=== PATIENT | female | born 1985 | race Caucasian/White ===

== ENCOUNTER 2017-01-01 17:42 | Emergency (ER) | payer OTHER ==
[~2017-01-01] VITALS: Ht 170.2 cm; Wt 147.8 kg
[~2017-01-01 17:42] MED LIST: ALBUAER2 INH; ARIP1TAB8 PO; ATEN25TA PO; BCPILLS PO; CETI10TA10 PO; CHOL1TAB4 PO; CHRO1CAP PO; COLE625T PO; CRAN1TAB3 PO; CYAN50TA2 PO; DEXT20CA PO; DIAZ10GE PO; LAMO200T32 PO; LAVAZA PO; LEVO150T9 PO; LRS10 PO; METF-382 PO; NXM/40 PO; OXYC7.5T78 PO; PRAZ1CAP10 PO; SNG10 PO; SUMA100T16 PO; SYMIN160 INH; TOPI100T45 PO; VITACAP37 PO; [UNRECOGNIZED DRUG - CODE] IM; [UNRECOGNIZED DRUG - CODE] PO; [UNRECOGNIZED DRUG - CODE] PO; [UNRECOGNIZED DRUG - OTHER]; [UNRECOGNIZED DRUG - OTHER] PO
[2017-01-01 17:45] VITALS: TEMP 36.5; Ht 170.2 cm; Wt 147.8 kg
[2017-01-01 18:20] LABS: BASO % 0.4 %; BASO ABS # 0.03 K/uL (0-0.2); COMPLETE YES; EOS % 2.6 %; HEMATOCRIT 41.1 % (37-47); IG% 0.1 %; LYMPH % 36.8 %; MEAN CELL VOLUME 87.3 fL (80-100); MEAN CORPUSCULAR HEMOGLOBIN 30.4 pg (25-34); MEAN CORPUSCULAR HGB CONC 34.8 g/dl (32-36); MEAN PLATELET VOLUME 11.3 fL (7.4-10.4); NEUT % 52.1 %; PLATELET COUNT 181 K/uL (130-400); RED BLOOD COUNT 4.71 M/uL (4.2-5.4); WHITE BLOOD COUNT 8.42 K/uL (4.8-10.8)
--- NOTE | 2017-01-01 18:36 | DIAGNOSTIC IMAGING REPORT ---
CHEST ONE VIEW PORTABLE CLINICAL HISTORY: Evaluate Fever/Sepsis dyspnea COMPARISON STUDY: No previous studies for comparison. FINDINGS: The bones soft tissues and hemidiaphragms are normal. The cardiomediastinal silhouette is normal. The lungs are clear. The pulmonary vasculature is normal. IMPRESSION: Negative chest. Electronically signed by: Han Shaw M.D. 01/01/2017 6:34 PM Dictated Date/Time: 01/01/2017 6:34 PM
[2017-01-01 18:42] LABS: BLOOD UREA NITROGEN 8 mg/dl (7-18); BUN/CREATININE RATIO 13.1 (10-20); CALCIUM 9.1 mg/dl (8.5-10.1); CARBON DIOXIDE 25 mmol/L (21-32); CHLORIDE 107 mmol/L (98-107); CREATININE 0.65 mg/dl (0.60-1.20); GLUCOSE 79 mg/dl (70-99); SODIUM 140 mmol/L (136-145)
[2017-01-01] MEDS ORDERED: NORGTAB36 PO (18:42)
[2017-01-01] MEDS ORDERED: TIZA2CAP PO ×2 (18:44→18:46)
[2017-01-01] MEDS ORDERED: [UNRECOGNIZED DRUG - CODE] INJ (18:54)
[2017-01-01] MEDS ORDERED: MULT-506 PO (18:58)
[2017-01-01] MEDS ORDERED: B-CO1CAP17 PO (19:02)
[2017-01-01] MEDS ORDERED: CLB/200 PO (19:03)
[2017-01-01] MEDS ORDERED: PRVHFAIN INH (19:06)
--- NOTE | 2017-01-01 19:14 | EMERGENCY ROOM VISIT NOTE ---
History Report prepared by Wesley: Bobby Alvares Under the Supervision of: Dr. Maynor Bush D.O. First contact with patient: 18:02 Chief Complaint: VOMITING Stated Complaint: VOMITING BLOOD DIZZY Nursing Triage Summary: HEMATEMESIS, DARK STOOL. RECENT FALLS. LEFT HIP PAIN. LEFT SHOULDER/BACK PAIN WITH DEEP BREATHS. History of Present Illness The patient is a 31 year old female who presents to the Emergency Room with complaints of intermittent vomiting that began this morning. She rates her pain a 10/10 in severity. After eating breakfast, she went to the bathroom secondary to feeling like she was going to throw up. She then had an episode of hematemesis. The patient was diagnosed with gastroparesis by a doctor in [place]. She received an endoscopy in May 2016 that showed this. She is currently dizzy, fatigued, and short of breath. She states that with deep breaths, she experiences back pain. Her hematemesis has become more frequent. She has a past medical history of hypothyroidism, bipolar disorder, and a fatty liver. She is currently taking a hypothyroid medication, an acid reflux medication, and a prn nausea medication. Source of History: patient Onset: this morning Position: other (GI) Symptom Intensity: mild Quality: other (Emesis) Timing: intermittent Modifying Factors (Worsening): breathing Associated Symptoms: + SOB, + back pain, + fatigue Note: She is currently dizzy and had one episode of hematemesis this morning. Review of Systems See HPI for pertinent positives & negatives. A total of 10 systems reviewed and were otherwise negative. Past Medical & Surgical Surgical Problems: (1) History of cholecystectomy (2) History of orthopedic surgery (3) Previous back surgery Hypothyroid Bipolar disorder Insulin resistance PCOS Fatty Liver Family History Patient reports no known family medical history. Social History Smoking Status: Never Smoker Smokeless Tobacco Use: Yes Alcohol Use: none Marital Status: single Housing Status: lives with family Occupation Status: unemployed Current/Historical Medications Scheduled Aripiprazole Lauroxil (Aristada), 3.2 ML INJ [id number] Atenolol (Tenormin), 25 MG PO QAM Budesonide/Formoterol Fumarate (Symbicort 160/4.5 Inhaler ), 2 PUFFS INH BID Celecoxib (CeleBREX), 200 MG PO QAM Cetirizine Hcl (Zyrtec), 10 MG PO DAILY Cholecalciferol (Vitamin D-3), 5,000 INTER.UNIT PO BID Chromium-Cinnamon (Cinnamon Plus Chromium), 1,000 MG PO BID Cranberry (Vaccinium Macrocarp (Cranberry), 900 MG PO QAM Dextromethorphan Hbr-Quinidine (Nuedexta), 1 CAP PO QAM Dextromethorphan Hbr-Quinidine (Nuedexta), 2 CAP PO QPM Diazepam (Anticonvulsant) (Diazepam), 10 MG PO BID Esomeprazole Magnesium (Nexium), 40 MG PO AMPM Lamotrigine (Lamictal Xr), 200 MG PO QAM Levothyroxine Sodium (Levothyroxine Sodium), 150 MCG PO DAILY Metformin Ext Rel (Glucophage Ext Rel), 1,000 MG PO QPM Montelukast Sod (Montelukast Sodium), 10 MG PO QPM Multivitamin (Multivitamin), 2 TAB PO QAM Norgestimate-Ethinyl Estradiol (Ortho Tri-Cyclen), 1 TAB PO DAILY Miyzoyecvxijkmgogo-Enh-Idw (Vayacog), 1 CAP PO QAM Sumatriptan Succinate (Imitrex), 1 TAB PO UD Tizanidine (Zanaflex), 4 MG PO QAM Tizanidine (Zanaflex), 2 MG PO QPM Vitamin B Cmplx/Vitc/Folic Ac (Nephrocaps), 1 CAP PO QAM Vitamin E (E-400), 400 UNIT PO BID Scheduled PRN Albuterol (Ventolin Hfa), 2 PUFFS INH Q4H PRN for SOB/Wheezing Diclofenac Potassium (Migraine ([place]), 1 PKT PO UD PRN for Migraine Allergies Coded Allergies: Risperidone (Verified Allergy, Unknown, ., 03/04/15) Uncoded Allergies: FANPT (Allergy, Unknown, ., 03/04/15) Physical Exam Vital Signs Date Time Temp Pulse Resp B/P Pulse Ox O2 Delivery O2 Flow Rate FiO2 01/01/17 19:53 120/72 01/01/17 19:42 60 23 98 01/01/17 19:12 65 21 97 01/01/17 18:42 64 19 96 01/01/17 18:12 60 20 96 01/01/17 18:06 63 01/01/17 18:03 122/77 01/01/17 17:45 36.5 64 18 133/86 96 Room Air Physical Exam CONSTITUTIONAL/VITAL SIGNS: Reviewed / noted above. GENERAL: Non-toxic in appearance. Morbid obesity. No acute distress. INTEGUMENTARY: Warm, dry, and [place]. HEAD: Normocephalic. EYES: without scleral icterus or trauma. ENT/OROPHARYNX: clear and moist. LYMPHADENOPATHY/NECK: Is supple without lymphadenopathy or meningismus. RESPIRATORY: Lungs clear and equal. CARDIOVASCULAR: Regular rate and rhythm. GI/ABDOMEN: Soft and nontender. No organomegaly or pulsatile mass. No rebound or guarding. Normal bowel sounds. EXTREMITIES: Warm and well perfused. BACK: No CVA tenderness. NEUROLOGICAL: Intact without focal deficits. PSYCHIATRIC: normal affect. MUSCULOSKELETAL: Normally developed with good muscle tone. Medical Decision & Procedures ER Provider Diagnostic Interpretation: X ray results and stated below per my interpretation and radiology interpretation. CHEST ONE VIEW PORTABLE CLINICAL HISTORY: Evaluate Fever/Sepsis dyspnea COMPARISON STUDY: No previous studies for comparison. FINDINGS: The bones soft tissues and hemidiaphragms are normal. The cardiomediastinal silhouette is normal. The lungs are clear. The pulmonary vasculature is normal. IMPRESSION: Negative chest. Electronically signed by: Han Shaw M.D. 01/01/2017 6:34 PM Dictated Date/Time: 01/01/2017 6:34 PM Laboratory Results 01/01/17 18:10 Red Blood Count 4.71, Mean Corpuscular Volume 87.3, Mean Corpuscular Hemoglobin 30.4, Mean Corpuscular Hemoglobin Concent 34.8, Mean Platelet Volume 11.3, Neutrophils (%) (Auto) 52.1, Lymphocytes (%) (Auto) 36.8, Monocytes (%) (Auto) 8.0, Eosinophils (%) (Auto) 2.6, Basophils (%) (Auto) 0.4, Neutrophils # (Auto) 4.39, Lymphocytes # (Auto) 3.10, Monocytes # (Auto) 0.67, Eosinophils # (Auto) 0.22, Basophils # (Auto) 0.03 01/01/17 18:10 Test 01/01/17 18:10 White Blood Count 8.42 K/uL (4.8-10.8) Red Blood Count 4.71 M/uL (4.2-5.4) Hemoglobin 14.3 g/dL (12.0-16.0) Hematocrit 41.1 % (37-47) Mean Corpuscular Volume 87.3 fL (80-100) Mean Corpuscular Hemoglobin 30.4 pg (25-34) Mean Corpuscular Hemoglobin Concent 34.8 g/dl (32-36) Platelet Count 181 K/uL (130-400) Mean Platelet Volume 11.3 fL (7.4-10.4) Neutrophils (%) (Auto) 52.1 % Lymphocytes (%) (Auto) 36.8 % Monocytes (%) (Auto) 8.0 % Eosinophils (%) (Auto) 2.6 % Basophils (%) (Auto) 0.4 % Neutrophils # (Auto) 4.39 K/uL (1.4-6.5) Lymphocytes # (Auto) 3.10 K/uL (1.2-3.4) Monocytes # (Auto) 0.67 K/uL (0.11-0.59) Eosinophils # (Auto) 0.22 K/uL (0-0.5) Basophils # (Auto) 0.03 K/uL (0-0.2) RDW Standard Deviation 40.0 fL (36.4-46.3) RDW Coefficient of Variation 12.5 % (11.5-14.5) Immature Granulocyte % (Auto) 0.1 % Immature Granulocyte # (Auto) 0.01 K/uL (0.00-0.02) Anion Gap 8.0 mmol/L (3-11) Est Creatinine Clear Calc Drug Dose 188.5 ml/min Estimated GFR () 136.2 Estimated GFR (Non- 117.5 BUN/Creatinine Ratio 13.1 (10-20) Calcium Level 9.1 mg/dl (8.5-10.1) Total Creatine Kinase 44 U/L (26-192) Creatine Kinase MB < 0.5 ng/ml (0.5-3.6) Creatine Kinase MB Ratio (0-3.0) Lipase 130 U/L (73-393) Laboratory results as stated above per my review. ED Course 180: Previous medical records were reviewed. The patient was evaluated in room C11B. A complete history and physical examination was performed. 1916: On reevaluation, the patient is resting. I discussed the results and findings with the patient. She verbalized agreement of the treatment plan. She was discharged home. Medical Decision Differential diagnosis: Etiologies such as metabolic, infection, hypo/hyperglycemia, electrolyte abnormalities, cardiac sources, intracerebral event, toxicologic, neurologic, as well as others were entertained. This is a 31-year-old female who presents to the emergency department with a chief complaint of some hematemesis. The patient has a history of this. She has had endoscopy in [place] for the same May 2016. The mother reports the patient has gastroparesis and vomits occasionally. It does at times have blood in it. The patient has been feeling tired a lot. She states that today's symptoms occurred around noon after she ate. She denies any other significant symptoms. She does have history of hypothyroidism, bipolar disorder , insulin resistance, fatty liver and trapezius. Patient's vital signs are normal. Her physical exam was unremarkable. She is obese. She is in no distress. The patient recently moved here from [place]. CBC is normal, PRP is normal. Lipase is negative. Chest x-ray did not show acute disease. The patient was told the results of the test. She is felt to be stable for discharge and outpatient follow-up. Impression Primary Impression: Hematemesis Additional Impression: Fatigue Scribe Attestation The scribe's documentation has been prepared under my direction and personally reviewed by me in its entirety. I confirm that the note above accurately reflects all work, treatment, procedures, and medical decision making performed by me. Departure Information Dispostion Home / Self-Care Referrals No Doctor, Assigned (PCP) Forms HOME CARE DOCUMENTATION FORM, IMPORTANT VISIT INFORMATION Patient Instructions My [facility] Additional Instructions Follow-up with your doctor for further care and evaluation in 1-2 weeks. Return to the emergency department for worsening or new symptoms or any concerns. You have been examined and treated today on an emergency basis only. This is not a substitute for, or an effort to provide, complete comprehensive medical care. It is impossible to recognize and treat all injuries or illnesses in a single emergency department visit. It is therefore important that you follow up closely with your doctor. Call as soon as possible for an appointment. Problem Qualifiers
[2017-01-01 19:42] VITALS: PULSE 60; O2SAT 98
[2017-01-01 19:53] VITALS: BP 120/72
== END 2017-01-01 20:25 | disposition home or self-care (01) ==
LOC: C.EDB 17:43 → C.EDC 20:25
DX: K92.0 Hematemesis (principal); R53.83 Other fatigue; E03.9 Hypothyroidism, unspecified; F31.9 Bipolar disorder, unspecified; Z90.49 Acquired absence of other specified parts of digestive tract; Z98.890 Other specified postprocedural states; Z79.899 Other long term (current) drug therapy; E28.2 Polycystic ovarian syndrome

== ENCOUNTER 2017-11-28 15:34 | Emergency (ER) | payer OTHER ==
[~2017-11-28] VITALS: Ht 170.2 cm; Wt 162.3 kg
[~2017-11-28 15:34] MED LIST changes: -ALBUAER2 INH; -ARIP1TAB8 PO; +B-CO1CAP17 PO; -BCPILLS PO; +CLB/200 PO; -COLE625T PO; -CYAN50TA2 PO; -LAVAZA PO; -LRS10 PO; +MULT-506 PO; +NORGTAB36 PO; -OXYC7.5T78 PO; -PRAZ1CAP10 PO; +PRVHFAIN INH; +TIZA2CAP PO; -TOPI100T45 PO; -[UNRECOGNIZED DRUG - CODE] IM; +[UNRECOGNIZED DRUG - CODE] INJ; -[UNRECOGNIZED DRUG - OTHER]; -[UNRECOGNIZED DRUG - OTHER] PO
[2017-11-28 15:36] VITALS: TEMP 36.6; Ht 170.2 cm; Wt 162.3 kg
--- NOTE | 2017-11-28 16:09 | EMERGENCY ROOM VISIT NOTE ---
ED Visit Note First contact with patient: 15:46 CHIEF COMPLAINT: Rectal bleeding and abdominal pain HISTORY OF PRESENTING ILLNESS: This is a 32-year-old female who presents to the emergency department with complaint of abdominal pain and rectal bleeding that started this morning around 10 AM. She states she had 2 bloody bowel movements , the first was dark red blood mixed in with stool, the second she states was pure blood and clots. She states she has been having lower abdominal and rectal pain that has been constant since 10 AM, rates as 9.5/10. She has not taken any medications for the pain. She does report a history of anal fissures , colon polyps, and hemorrhoids, and states she has had problems with rectal bleeding in the past, but states it not in several years. She reports that she has had multiple endoscopies and colonoscopies and has been followed by GI doctor in the past for gastroparesis. She states she recently moved to the area and is in the process of being established with a new GI doctor, states [facility] She does note that after she had her second bloody bowel movement, she sat down on the cough and thinks "I might have passed out for a second." She denies any falls or associated injuries. She states she has continued to feel dizzy off and on since that time. She denies any fevers, headaches, chest pain, shortness of breath, cough, hemoptysis, leg pain or swelling, recent travel or immobilization , or history of blood clots. She does take oral contraceptives. REVIEW OF SYSTEMS: A complete 10 point review of systems was reviewed with the patient with pertinent positives and negatives as per history of present illness. All else were negative. PAST MEDICAL HISTORY: Reviewed in chart. SOCIAL HISTORY: Lives at home. Denies tobacco use, alcohol or recreational drug use. ALLERGIES: Reviewed in chart. PHYSICAL EXAM: CONSTITUTIONAL: Pleasant and cooperative. No acute distress. Mildly dehydrated , but otherwise well appearing and well nourished. Morbidly obese HEENT: Normocephalic, atraumatic. Pupils equal, round and reactive to light, EOMI. TMs normal. Pharynx normal. Tacky mucous membranes. NECK: Supple, full active range of motion without discomfort. No cervical adenopathy. RESPIRATORY: Clear to auscultation bilaterally with no wheezing, crackles, rhonchi or stridor. Equal expansion bilaterally. CARDIOVASCULAR: Regular rate and rhythm with no murmurs, rubs or gallops. Normal peripheral perfusion. No edema. GASTROINTESTINAL: Soft, mild generalized tenderness to palpation throughout, nondistended, obese. No rebound tenderness or guarding.. No palpable masses or HSM. Bowel sounds present in all quadrants. No CVA tenderness. DIGITAL RECTAL EXAM: Examination of the external anus reveals no hemorrhoids or active bleeding. Normal rectal tone. General discomfort, but no areas of exquisite tenderness, no palpable internal hemorrhoids, fissures, or palpable masses. Scant amount of reddish brown stool, guaiac POSITIVE. ED oscillograph technician was present as assembler billiard table at bedside during this exam. MUSCULOSKELETAL: Full range of motion of all joints without discomfort. INTEGUMENTARY: No rash or other significant dermatologic conditions noted. NEUROLOGIC: Alert and oriented X 4 with normal affect. Normal strength and sensation in all 4 extremities.. No focal neurologic deficits noted. Normal speech. Normal gait observed ED COURSE AND MEDICAL DECISION MAKING: CC: Patient presenting with complaint of rectal bleeding, abdominal pain. DIFFERENTIAL DIAGNOSIS: Includes, but not limited to GI bleed, hemorrhoids, anal fissure, colitis, diverticulitis, intra-abdominal infection, inflammatory bowel disease, appendicitis, among others. INTERPRETATION OF LABS: No leukocytosis, not anemic. No significant electrolyte abnormalities, normal renal function, no significant elevation of liver enzymes or lipase. D-dimer negative. UA negative, negative urine . IMAGING: CT SCAN OF THE ABDOMEN AND PELVIS WITH IV CONTRAST CLINICAL HISTORY: Generalized abdominal pain. Hematochezia. COMPARISON STUDY: Abdominal CT dated 03/04/2015. TECHNIQUE: Following the IV administration of 93 cc of Optiray 320, CT scan of the abdomen and pelvis is performed from the lung bases to the proximal femora. Images are reviewed in the axial, sagittal, and coronal planes. IV contrast was administered without complication. A dose lowering technique was utilized adhering to the principles of ALARA. CT DOSE: 2410.80 mGy.cm FINDINGS: Lung bases: The heart is top normal in size and without pericardial effusion. The lung bases are clear. Liver: The contrast-enhanced liver is enlarged, measuring 21.4 cm in length. The liver demonstrates diffusely diminished attenuation consistent with hepatic steatosis. There is no intrahepatic biliary ductal dilatation. The hepatic veins and portal veins are patent. Gallbladder: Surgically absent noting clips in the gallbladder fossa. Spleen: The spleen is enlarged, measuring 16.7 cm in length. Pancreas: Unremarkable. Adrenal glands: Unremarkable. Kidneys: The contrast enhanced kidneys are normal in size and without hydronephrosis. The kidneys enhance symmetrically. Abdominal vasculature: The abdominal aorta is normal in course and caliber. Bowel: There is mild to moderate colonic diverticulosis without CT evidence of acute diverticulitis. No bowel obstruction is seen. The appendix is well-visualized and normal. Peritoneum: There is no intraperitoneal free air or abdominal ascites. Lymphadenopathy: None. Pelvic viscera: The bladder, uterus, and adnexa are normal as visualized. Small ovarian follicles are observed. Skeletal structures: No lytic or blastic lesions are seen. IMPRESSION: 1. There are no acute infectious or inflammatory findings in the abdomen or pelvis. 2. Hepatomegaly and severe hepatic steatosis. 3. Splenomegaly. 4. Mild to moderate colonic diverticulosis without CT evidence of acute diverticulitis. EKG: Shows normal sinus rhythm with a rate of 71 bpm, no acute ischemic changes noted, no significant change when compared to EKG of 01/01/2017 by my interpretation. MEDICATION RECONCILIATION: I attest that I have personally reviewed the patient 's current medication list. INITIAL VITAL SIGNS REVIEW: I reviewed the patient's initial vital signs and interpret them as follows: T: Afebrile; BP: Hypertensive; HR: WNL; RR: WNL; Pulse Ox: WNL on RA. Blood pressure screening: The patient was found to have an elevated blood pressure, which was felt to be situational. SUMMARY: Patient was evaluated at bedside, history and physical exam performed. Patient is alert and oriented, no acute distress, resting calmly in the stretcher. Patient has mild generalized tenderness to the abdomen throughout, no rebound tenderness or guarding. Abdomen is obese. Digital rectal exam performed, noting guaiac positive stool. No hemorrhoids or anal fissures noted on exam. Orders were placed at bedside for labs, UA and urine , IV fluids for hydration, CT abdomen/pelvis with IV contrast to evaluate for abdominal pain and rectal bleeding. Patient rating her pain as 9.5/10, she is resting calmly in the stretcher watching TV in no distress. She was offered something for pain, she declines at this time, stating she does not want narcotics because they constipate her. I have a low suspicion for PE based on Well's criteria, but patient does report a possible syncopal event and is on estrogen, therefore a d-dimer was also ordered. EKG reviewed at bedside and shows normal sinus rhythm with no evidence for arrhythmia or acute ischemic changes. Patient discussed with Dr. Ortiz, who agrees with my assessment and plan. Labs and imaging reviewed as above, unremarkable. No acute findings on CT. Negative D-dimer. She is not anemic. Patient reassessed multiple times throughout ED stay, she reports that her pain is improved, she has been tolerating PO fluids without difficulty. She has not had any further episodes of bloody bowel movements while in the ED. Patient was updated on all results and plan for discharge, she was encouraged to keep her scheduled appointment with GI for follow-up and also follow-up with your PCP. Patient was also given strict return precautions should her symptoms worsen, she verbalized understanding. Patient was discharged home in stable condition and ambulatory. Problem List Surgical Problems: (1) History of cholecystectomy Status: Resolved (2) History of orthopedic surgery Status: Resolved (3) Previous back surgery Status: Resolved Current/Historical Medications Scheduled Aripiprazole Lauroxil (Aristada), 3.2 ML INJ [id number] Atenolol (Tenormin), 25 MG PO AMPM Celecoxib (CeleBREX), 200 MG PO QAM Cetirizine Hcl (Zyrtec), 10 MG PO QPM Cholecalciferol (D-5000), 5,000 UNITS PO AMPM Chromium-Cinnamon (Cinnamon Plus Chromium), 1,000 MG PO BID Cranberry (Vaccinium Macrocarp (Cranberry), 900 MG PO QAM Cyclobenzaprine Hcl (Flexeril), 1 TAB PO once Dextromethorphan Hbr-Quinidine (Nuedexta), 1 CAP PO AMPM Diazepam (Valium), 10 MG PO AMPM Esomeprazole Magnesium (Nexium), 40 MG PO QAM Lamotrigine (Lamictal Xr), 200 MG PO QAM Levothyroxine Sodium (Levothyroxine Sodium), 150 MCG PO DAILY Metformin Ext Rel (Glucophage Ext Rel), 500 MG PO BID Montelukast Sod (Montelukast Sodium), 10 MG PO QPM Norgestimate-Ethinyl Estradiol (Ortho Tri-Cyclen), 1 TAB PO DAILY Jwsnivphvvlbzmoxcs-Has-Pro (Vayacog), 1 CAP PO QAM Tizanidine (Zanaflex), 2 MG PO TID Vitamin B Cmplx/Vitc/Folic Ac (Nephrocaps), 1 CAP PO QAM Vitamin E (E-400), 400 UNIT PO BID Scheduled PRN Albuterol (Ventolin Hfa), 2 PUFFS INH q4-q6h PRN for SOB/Wheezing Budesonide/Formoterol Fumarate (Symbicort 160/4.5 Inhaler ), 2 PUFFS INH BID PRN for SOB/Wheezing [Cambia], 1 DOSE PO prn PRN for Migraine Allergies Coded Allergies: Amoxicillin (Unverified Allergy, Severe, red itching, nausea, 11/28/17) Risperidone (Verified Allergy, Unknown, ., 11/28/17) Uncoded Allergies: FANPT (Allergy, Unknown, ., 03/04/15) Vital Signs Date Time Temp Pulse Resp B/P (MAP) Pulse Ox O2 Delivery O2 Flow Rate FiO2 11/28/17 18:20 67 18 121/77 98 Room Air 11/28/17 16:42 74 11/28/17 15:36 36.6 71 18 140/90 96 Room Air Laboratory Results 11/28/17 16:50 Red Blood Count 4.79, Mean Corpuscular Volume 86.8, Mean Corpuscular Hemoglobin 30.7, Mean Corpuscular Hemoglobin Concent 35.3, Mean Platelet Volume 10.8, Neutrophils (%) (Auto) 48.8, Lymphocytes (%) (Auto) 39.4, Monocytes (%) (Auto) 7.6, Eosinophils (%) (Auto) 3.6, Basophils (%) (Auto) 0.3, Neutrophils # (Auto) 3.79, Lymphocytes # (Auto) 3.06, Monocytes # (Auto) 0.59, Eosinophils # (Auto) 0.28, Basophils # (Auto) 0.02 11/28/17 16:50 Test 11/28/17 16:20 11/28/17 16:50 11/28/17 16:54 Urine Color DK YELLOW Urine Appearance CLEAR (CLEAR) Urine pH 7.0 (4.5-7.5) Urine Specific [place] 1.007 (1.000-1.030) Urine Protein NEG (NEG) Urine Glucose (UA) NEG (NEG) Urine Ketones NEG (NEG) Urine Occult Blood NEG (NEG) Urine Nitrite NEG (NEG) Urine Bilirubin NEG (NEG) Urine Urobilinogen NEG (NEG) Urine Leukocyte Esterase NEG (NEG) Urine Test NEG (NEG) White Blood Count 7.76 K/uL (4.8-10.8) Red Blood Count 4.79 M/uL (4.2-5.4) Hemoglobin 14.7 g/dL (12.0-16.0) Hematocrit 41.6 % (37-47) Mean Corpuscular Volume 86.8 fL (80-100) Mean Corpuscular Hemoglobin 30.7 pg (25-34) Mean Corpuscular Hemoglobin Concent 35.3 g/dl (32-36) Platelet Count 186 K/uL (130-400) Mean Platelet Volume 10.8 fL (7.4-10.4) Neutrophils (%) (Auto) 48.8 % Lymphocytes (%) (Auto) 39.4 % Monocytes (%) (Auto) 7.6 % Eosinophils (%) (Auto) 3.6 % Basophils (%) (Auto) 0.3 % Neutrophils # (Auto) 3.79 K/uL (1.4-6.5) Lymphocytes # (Auto) 3.06 K/uL (1.2-3.4) Monocytes # (Auto) 0.59 K/uL (0.11-0.59) Eosinophils # (Auto) 0.28 K/uL (0-0.5) Basophils # (Auto) 0.02 K/uL (0-0.2) RDW Standard Deviation 40.7 fL (36.4-46.3) RDW Coefficient of Variation 12.7 % (11.5-14.5) Immature Granulocyte % (Auto) 0.3 % Immature Granulocyte # (Auto) 0.02 K/uL (0.00-0.02) Anion Gap 8.0 mmol/L (3-11) Est Creatinine Clear Calc Drug Dose 171.6 ml/min Estimated GFR () 121.4 Estimated GFR (Non- 104.7 BUN/Creatinine Ratio 10.7 (10-20) Calcium Level 8.9 mg/dl (8.5-10.1) Total Bilirubin 0.6 mg/dl (0.2-1) Direct Bilirubin mg/dl (0-0.2) Aspartate Amino Transf (AST/SGOT) 59 U/L (15-37) Alanine Aminotransferase (ALT/SGPT) 83 U/L (12-78) Alkaline Phosphatase 78 U/L (45-117) Total Protein 6.7 gm/dl (6.4-8.2) Albumin 3.6 gm/dl (3.4-5.0) Lipase 104 U/L (73-393) Bedside D-Dimer 209 ng/mlFEU (0-450) Medications Administered Medications (Trade) Dose Ordered Sig/Fco Route Start Time Stop Time Status Last Admin Dose Admin Sodium Chloride 1,000 ml @ 999 mls/hr Q1H1M STAT IV 11/28/17 16:18 11/28/17 17:18 DC 11/28/17 16:56 999 MLS/HR Departure Information Impression Primary Impression: Rectal bleeding Additional Impression: Abdominal pain Dispostion Home / Self-Care Condition GOOD Referrals Trena Thompson D.OGuru (PCP) Patient Instructions ED Hematochezia Stable, My [facility] Additional Instructions You have been treated in the Emergency Department for your rectal bleeding and abdominal pain. Laboratory results and imaging studies have ruled out any emergent causes for your symptoms which would warrant admission or surgery. For pain control, you can use the following wrli-utw-omshrhj medicines (if >12 yo): - Regular strength (325mg/tab) Tylenol (acetaminophen) 2 tabs every 4-6 hours as needed. Do not exceed 10 tablets in a 24 hour period. Avoid taking more than 3000 mg of Tylenol per day. This includes any other sources of acetaminophen you may take on a regular basis. You may also try a heating pad to your lower abdomen for comfort. Drink plenty of fluids to stay well hydrated. Please keep your scheduled appointment with your gastroenterology specialist next week. You may benefit from having another colonoscopy to further evaluate your rectal bleeding. Return to the emergency department for severe worsening abdominal or back pain, severe nausea/vomiting or vomiting blood, large amounts of blood in your stool, fevers > 101.5, chest pain or shortness of breath, severe dizziness or passing out, or any other concerns. Problem Qualifiers Additional Impression: Abdominal pain Abdominal location: generalized Qualified Codes: R10.84 - Generalized abdominal pain
[2017-11-28] MEDS ORDERED: SODIUM CHLORIDE 0.9% 1000ML 1,000 ML IV STA (16:18)
[2017-11-28] MEDS ORDERED: OPTIRAY 320 IV PRN (16:30)
[2017-11-28] MEDS ORDERED: CAMBIA PO (17:01)
[2017-11-28] MEDS ORDERED: DIAZ10TA PO (17:05)
[2017-11-28] MEDS ORDERED: [UNRECOGNIZED DRUG - CODE] PO (17:06)
[2017-11-28] MEDS ORDERED: CHOLTAB11 PO (17:11)
[2017-11-28] MEDS ORDERED: CYAN10005 PO (17:14)
[2017-11-28 17:15] LABS: BASO % 0.3 %; BASO ABS # 0.02 K/uL (0-0.2); EOS % 3.6 %; EOS ABS # 0.28 K/uL (0-0.5); HEMATOCRIT 41.6 % (37-47); HEMOGLOBIN 14.7 g/dL (12.0-16.0); IG# 0.02 K/uL (0.00-0.02); LYMPH % 39.4 %; LYMPH ABS # 3.06 K/uL (1.2-3.4); MEAN CELL VOLUME 86.8 fL (80-100); MEAN CORPUSCULAR HEMOGLOBIN 30.7 pg (25-34); MEAN CORPUSCULAR HGB CONC 35.3 g/dl (32-36); MEAN PLATELET VOLUME 10.8 fL (7.4-10.4); MONO % 7.6 %; MONO ABS # 0.59 K/uL (0.11-0.59); NEUT % 48.8 %; NEUT ABS # 3.79 K/uL (1.4-6.5); PLATELET COUNT 186 K/uL (130-400); RED CELL DISTRIBUTION WIDTH CV 12.7 % (11.5-14.5); RED CELL DISTRIBUTION WIDTH SD 40.7 fL (36.4-46.3); WHITE BLOOD COUNT 7.76 K/uL (4.8-10.8)
[2017-11-28] MEDS ORDERED: CYCL5TAB PO (17:19)
[2017-11-28 17:44] LABS: ALBUMIN 3.6 gm/dl (3.4-5.0); ALKALINE PHOSPHATASE 78 U/L (45-117); ALT/SGPT 83 U/L (12-78); AST/SGOT 59 U/L (15-37); BLOOD UREA NITROGEN 8 mg/dl (7-18); CALCIUM 8.9 mg/dl (8.5-10.1); CARBON DIOXIDE 25 mmol/L (21-32); CREATININE 0.75 mg/dl (0.60-1.20); GLUCOSE 100 mg/dl (70-99); LIPASE 104 U/L (73-393); POTASSIUM 3.9 mmol/L (3.5-5.1); SODIUM 137 mmol/L (136-145); TOTAL PROTEIN 6.7 gm/dl (6.4-8.2)
--- NOTE | 2017-11-28 18:19 | DIAGNOSTIC IMAGING REPORT ---
CT SCAN OF THE ABDOMEN AND PELVIS WITH IV CONTRAST CLINICAL HISTORY: Generalized abdominal pain. Hematochezia. COMPARISON STUDY: Abdominal CT dated 03/04/2015. TECHNIQUE: Following the IV administration of 93 cc of Optiray 320, CT scan of the abdomen and pelvis is performed from the lung bases to the proximal femora. Images are reviewed in the axial, sagittal, and coronal planes. IV contrast was administered without complication. A dose lowering technique was utilized adhering to the principles of ALARA. CT DOSE: 2410.80 mGy.cm FINDINGS: Lung bases: The heart is top normal in size and without pericardial effusion. The lung bases are clear. Liver: The contrast-enhanced liver is enlarged, measuring 21.4 cm in length. The liver demonstrates diffusely diminished attenuation consistent with hepatic steatosis. There is no intrahepatic biliary ductal dilatation. The hepatic veins and portal veins are patent. Gallbladder: Surgically absent noting clips in the gallbladder fossa. Spleen: The spleen is enlarged, measuring 16.7 cm in length. Pancreas: Unremarkable. Adrenal glands: Unremarkable. Kidneys: The contrast enhanced kidneys are normal in size and without hydronephrosis. The kidneys enhance symmetrically. Abdominal vasculature: The abdominal aorta is normal in course and caliber. Bowel: There is mild to moderate colonic diverticulosis without CT evidence of acute diverticulitis. No bowel obstruction is seen. The appendix is well-visualized and normal. Peritoneum: There is no intraperitoneal free air or abdominal ascites. Lymphadenopathy: None. Pelvic viscera: The bladder, uterus, and adnexa are normal as visualized. Small ovarian follicles are observed. Skeletal structures: No lytic or blastic lesions are seen. IMPRESSION: 1. There are no acute infectious or inflammatory findings in the abdomen or pelvis. 2. Hepatomegaly and severe hepatic steatosis. 3. Splenomegaly. 4. Mild to moderate colonic diverticulosis without CT evidence of acute diverticulitis. Electronically signed by: Phi Rey M.D. 11/28/2017 6:18 PM Dictated Date/Time: 11/28/2017 6:09 PM
[2017-11-28 18:20] VITALS: BP 121/77; PULSE 67; O2SAT 98
== END 2017-11-28 19:00 | disposition home or self-care (01) ==
LOC: C.EDB 15:37 → C.EDA 19:00
DX: K62.5 Hemorrhage of anus and rectum (principal); R10.84 Generalized abdominal pain; R19.5 Other fecal abnormalities; R42 Dizziness and giddiness; Z90.49 Acquired absence of other specified parts of digestive tract; Z98.890 Other specified postprocedural states; Z88.0 Allergy status to penicillin; Z88.8 Allergy status to other drugs, medicaments and biological substances